=== PATIENT | male | born 1940 | race Caucasian/White ===

== ENCOUNTER 2019-02-16 21:38 | Emergency (ER) | payer MEDICARE, OTHER ==
[~2019-02-16] VITALS: Ht 175.3 cm; Wt 78.0 kg
[~2019-02-16 21:38] MED LIST: LEVAQUIN500 MG PO; PREDNISONE10 MG PO; RAMIPRIL10 MG PO
--- OUTSIDE RECORDS SUMMARY | 2019-02-16 21:41 | XMS REPORT ---
Author Author [facility] Address Unknown Phone Unavailable Care Team Providers Care Supervisor Painting Department Name Role Phone CARLOSShay RODRIGUEZ FINN Unavailable Unavailable Shay MAKI Unavailable Unavailable Payers Payer Name Policy Type Policy Number Effective Date Expiration Date Problems This patient has no known problems. Allergies, Adverse Reactions, Alerts Allergy Name Allergy Type Status Severity Reaction(s) Onset Date Inactive Date Treating Clinician Comments imtiaz FUENTES Active [place] 2016-08-20 00:00:00 Medications This patient has no known medications. Results Test Description Test Time Test Comments Text Results Atomic Results Result Comments BASIC METABOLIC PANEL 2019-02-05 06:17:00 SODIUM (BEAKER) (test pjec=670) 134 meq/L 136-145 POTASSIUM (BEAKER) (test egpd=698) 4.5 meq/L 3.5-5.1 CHLORIDE (BEAKER) (test fcip=793) 100 meq/L 98-107 CO2 (BEAKER) (test atgd=271) 27 meq/L 22-29 BLOOD UREA NITROGEN (BEAKER) (test emff=955) 15 mg/dL 7-21 CREATININE (BEAKER) (test nvbm=954) 0.91 mg/dL 0.57-1.25 GLUCOSE RANDOM (BEAKER) (test ixrf=466) 98 mg/dL 70-105 CALCIUM (BEAKER) (test agvb=275) 9.2 mg/dL 8.4-10.2 EGFR (BEAKER) (test vlau=5467) 81 mL/min/1.73 sq m ESTIMATED GFR IS NOT ACCURATE CREATININE CLEARANCE IN PREDICTING GLOMERULAR FILTRATION RATE. ESTIMATED GFR IS NOT APPLICABLE FOR DIALYSIS PATIENTS. CBC (HEMOGRAM ONLY)2019-02-05 05:25:00* Test Item Value Reference Range Comments WHITE BLOOD CELL COUNT (BEAKER) (test ucif=339) 8.0 K/ L 3.5-10.5 RED BLOOD CELL COUNT (BEAKER) (test mtqg=360) 4.25 M/ L 4.63-6.08 HEMOGLOBIN (BEAKER) (test jyni=065) 13.9 GM/DL 13.7-17.5 HEMATOCRIT (BEAKER) (test mkjy=398) 41.3 % 40.1-51.0 MEAN CORPUSCULAR VOLUME (BEAKER) (test rsls=940) 97.2 fL 79.0-92.2 MEAN CORPUSCULAR HEMOGLOBIN (BEAKER) (test vkik=634) 32.7 pg 25.7-32.2 MEAN CORPUSCULAR HEMOGLOBIN CONC (BEAKER) (test hqhz=600) 33.7 GM/DL 32.3-36.5 RED CELL DISTRIBUTION WIDTH (BEAKER) (test bayu=013) 12.5 % 11.6-14.4 PLATELET COUNT (BEAKER) (test dajl=575) 216 K/CU MM 150-450 MEAN PLATELET VOLUME (BEAKER) (test iopo=691) 10.0 fL 9.4-12.4 NUCLEATED RED BLOOD CELLS (BEAKER) (test ukjr=878) 0 /100 WBC 0-0 BASIC METABOLIC [id number] 13:53:00* Test Item Value Reference Range Comments SODIUM (BEAKER) (test lfyj=880) 129 meq/L 136-145 POTASSIUM (BEAKER) (test alri=618) 4.5 meq/L 3.5-5.1 CHLORIDE (BEAKER) (test bhca=449) 97 meq/L 98-107 CO2 (BEAKER) (test zqzo=684) 27 meq/L 22-29 BLOOD UREA NITROGEN (BEAKER) (test qirq=416) 17 mg/dL 7-21 CREATININE (BEAKER) (test iflm=627) 0.98 mg/dL 0.57-1.25 GLUCOSE RANDOM (BEAKER) (test whvy=365) 108 mg/dL 70-105 CALCIUM (BEAKER) (test vzwu=130) 9.1 mg/dL 8.4-10.2 EGFR (BEAKER) (test iqwc=1279) 74 mL/min/1.73 sq m ESTIMATED GFR IS NOT ACCURATE CREATININE CLEARANCE IN PREDICTING GLOMERULAR FILTRATION RATE. ESTIMATED GFR IS NOT APPLICABLE FOR DIALYSIS PATIENTS. PT/[id number] 13:46:00* Test Item Value Reference Range Comments PROTIME (BEAKER) (test okez=743) 13.3 seconds 11.9-14.2 INR (BEAKER) (test olbo=637) 1.1 <=5.9 PARTIAL THROMBOPLASTIN TIME (BEAKER) (test poxn=449) 30.7 seconds 22.5-36.0 Effective 08/31/2018: PT Reference Range ChangeNew: 11.9-14.2 Previous: 11.7-14. 7RECOMMENDED COUMADIN/WARFARIN INR THERAPY RANGESSTANDARD DOSE: 2.0-3.0 Include s: PROPHYLAXIS for venous thrombosis, systemic embolization; TREATMENT for venou s thrombosis and/or pulmonary embolus.HIGH RISK: Target INR is 2.5-3.5 for patie nts wiht mechanical heart valves.CBC W/PLT COUNT & AUTO [id number] 13:37:00* Test Item Value Reference Range Comments WHITE BLOOD CELL COUNT (BEAKER) (test bbiq=263) 7.6 K/ L 3.5-10.5 RED BLOOD CELL COUNT (BEAKER) (test ukyd=379) 3.97 M/ L 4.63-6.08 HEMOGLOBIN (BEAKER) (test ochi=141) 13.2 GM/DL 13.7-17.5 HEMATOCRIT (BEAKER) (test dwxa=387) 38.4 % 40.1-51.0 MEAN CORPUSCULAR VOLUME (BEAKER) (test ohcc=621) 96.7 fL 79.0-92.2 MEAN CORPUSCULAR HEMOGLOBIN (BEAKER) (test wbxw=031) 33.2 pg 25.7-32.2 MEAN CORPUSCULAR HEMOGLOBIN CONC (BEAKER) (test rfui=804) 34.4 GM/DL 32.3-36.5 RED CELL DISTRIBUTION WIDTH (BEAKER) (test rlrv=264) 12.5 % 11.6-14.4 PLATELET COUNT (BEAKER) (test nvtm=236) 192 K/CU MM 150-450 MEAN PLATELET VOLUME (BEAKER) (test czkg=436) 10.0 fL 9.4-12.4 NUCLEATED RED BLOOD CELLS (BEAKER) (test cfex=300) 0 /100 WBC 0-0 NEUTROPHILS RELATIVE PERCENT (BEAKER) (test bhkr=635) 64 % LYMPHOCYTES RELATIVE PERCENT (BEAKER) (test mzpp=631) 17 % MONOCYTES RELATIVE PERCENT (BEAKER) (test mjno=520) 11 % EOSINOPHILS RELATIVE PERCENT (BEAKER) (test mpyq=510) 8 % BASOPHILS RELATIVE PERCENT (BEAKER) (test aegc=747) 1 % NEUTROPHILS ABSOLUTE COUNT (BEAKER) (test jaeq=329) 4.88 K/ L 1.78-5.38 LYMPHOCYTES ABSOLUTE COUNT (BEAKER) (test hnaa=457) 1.26 K/ L 1.32-3.57 MONOCYTES ABSOLUTE COUNT (BEAKER) (test qcqc=853) 0.81 K/ L 0.30-0.82 EOSINOPHILS ABSOLUTE COUNT (BEAKER) (test dpws=849) 0.58 K/ L 0.04-0.54 BASOPHILS ABSOLUTE COUNT (BEAKER) (test imcm=437) 0.04 K/ L 0.01-0.08 IMMATURE GRANULOCYTES-RELATIVE PERCENT (BEAKER) (test pdqb=2779) 0 % 0-1 BASIC METABOLIC [id number] 05:00:00* Test Item Value Reference Range Comments SODIUM (BEAKER) (test cltq=081) 135 meq/L 136-145 POTASSIUM (BEAKER) (test msuf=189) 5.0 meq/L 3.5-5.1 CHLORIDE (BEAKER) (test xwrm=477) 104 meq/L 98-107 CO2 (BEAKER) (test fhke=033) 27 meq/L 22-29 BLOOD UREA NITROGEN (BEAKER) (test uvag=698) 11 mg/dL 7-21 CREATININE (BEAKER) (test kgqn=977) 0.82 mg/dL 0.57-1.25 GLUCOSE RANDOM (BEAKER) (test zoul=052) 98 mg/dL 70-105 CALCIUM (BEAKER) (test hzex=676) 8.6 mg/dL 8.4-10.2 EGFR (BEAKER) (test igvy=8047) 91 mL/min/1.73 sq m ESTIMATED GFR IS NOT ACCURATE CREATININE CLEARANCE IN PREDICTING GLOMERULAR FILTRATION RATE. ESTIMATED GFR IS NOT APPLICABLE FOR DIALYSIS PATIENTS. CBC W/PLT COUNT & AUTO [id number] 04:33:00* Test Item Value Reference Range Comments WHITE BLOOD CELL COUNT (BEAKER) (test umyt=309) 6.8 K/ L 3.5-10.5 RED BLOOD CELL COUNT (BEAKER) (test deru=884) 3.76 M/ L 4.63-6.08 HEMOGLOBIN (BEAKER) (test mkde=894) 12.3 GM/DL 13.7-17.5 HEMATOCRIT (BEAKER) (test ssfd=599) 36.7 % 40.1-51.0 MEAN CORPUSCULAR VOLUME (BEAKER) (test szwi=620) 97.6 fL 79.0-92.2 MEAN CORPUSCULAR HEMOGLOBIN (BEAKER) (test cdew=733) 32.7 pg 25.7-32.2 MEAN CORPUSCULAR HEMOGLOBIN CONC (BEAKER) (test gqeq=466) 33.5 GM/DL 32.3-36.5 RED CELL DISTRIBUTION WIDTH (BEAKER) (test dszi=006) 12.6 % 11.6-14.4 PLATELET COUNT (BEAKER) (test acln=907) 171 K/CU MM 150-450 MEAN PLATELET VOLUME (BEAKER) (test wean=611) 10.1 fL 9.4-12.4 NUCLEATED RED BLOOD CELLS (BEAKER) (test lceq=187) 0 /100 WBC 0-0 NEUTROPHILS RELATIVE PERCENT (BEAKER) (test xzep=433) 72 % LYMPHOCYTES RELATIVE PERCENT (BEAKER) (test gjdk=006) 17 % MONOCYTES RELATIVE PERCENT (BEAKER) (test rkxv=846) 9 % EOSINOPHILS RELATIVE PERCENT (BEAKER) (test wdzx=380) 2 % BASOPHILS RELATIVE PERCENT (BEAKER) (test xwqz=089) 1 % NEUTROPHILS ABSOLUTE COUNT (BEAKER) (test tret=220) 4.85 K/ L 1.78-5.38 LYMPHOCYTES ABSOLUTE COUNT (BEAKER) (test ajnj=104) 1.12 K/ L 1.32-3.57 MONOCYTES ABSOLUTE COUNT (BEAKER) (test aoal=257) 0.62 K/ L 0.30-0.82 EOSINOPHILS ABSOLUTE COUNT (BEAKER) (test trgc=218) 0.15 K/ L 0.04-0.54 BASOPHILS ABSOLUTE COUNT (BEAKER) (test htfm=898) 0.04 K/ L 0.01-0.08 IMMATURE GRANULOCYTES-RELATIVE PERCENT (BEAKER) (test qfta=1258) 0 % 0-1 [id number] 10:18:00* Test Item Value Reference Range Comments ACTIVATED CLOTTING TIME (BEAKER) (test rlls=148) 340 sec Reference Range: 74-137 seconds, Baseline/TESTED AT [place] [id number] 09:40:00* Test Item Value Reference Range Comments ACTIVATED CLOTTING TIME (BEAKER) (test ikbv=115) 263 sec Reference Range: 74-137 seconds, Baseline/TESTED AT [place] [id number] [id number] 09:08:00* Test Item Value Reference Range Comments ACTIVATED CLOTTING TIME (BEAKER) (test duxx=410) 323 sec Reference Range: 74-137 seconds, Baseline/TESTED AT [place] [id number] 09:08:00* Test Item Value Reference Range Comments ACTIVATED CLOTTING TIME (BEAKER) (test qkpn=874) 252 sec Reference Range: 74-137 seconds, Baseline/TESTED AT [place] [id number] BASIC METABOLIC [id number] 07:39:00* Test Item Value Reference Range Comments SODIUM (BEAKER) (test vfck=659) 128 meq/L 136-145 POTASSIUM (BEAKER) (test loyp=840) 4.2 meq/L 3.5-5.1 CHLORIDE (BEAKER) (test vamy=860) 98 meq/L 98-107 CO2 (BEAKER) (test bwcs=640) 27 meq/L 22-29 BLOOD UREA NITROGEN (BEAKER) (test vsnu=719) 14 mg/dL 7-21 CREATININE (BEAKER) (test dvvp=539) 0.84 mg/dL 0.57-1.25 GLUCOSE RANDOM (BEAKER) (test navi=257) 93 mg/dL 70-105 CALCIUM (BEAKER) (test xcvk=858) 8.6 mg/dL 8.4-10.2 EGFR (BEAKER) (test wqky=7719) 89 mL/min/1.73 sq m ESTIMATED GFR IS NOT ACCURATE CREATININE CLEARANCE IN PREDICTING GLOMERULAR FILTRATION RATE. ESTIMATED GFR IS NOT APPLICABLE FOR DIALYSIS PATIENTS. CBC (HEMOGRAM ONLY)2019-01-31 06:59:00* Test Item Value Reference Range Comments WHITE BLOOD CELL COUNT (BEAKER) (test zlru=922) 4.8 K/ L 3.5-10.5 RED BLOOD CELL COUNT (BEAKER) (test xxdq=204) 3.87 M/ L 4.63-6.08 HEMOGLOBIN (BEAKER) (test zlrr=014) 12.7 GM/DL 13.7-17.5 HEMATOCRIT (BEAKER) (test brbg=242) 36.9 % 40.1-51.0 MEAN CORPUSCULAR VOLUME (BEAKER) (test wylq=180) 95.3 fL 79.0-92.2 MEAN CORPUSCULAR HEMOGLOBIN (BEAKER) (test oixu=294) 32.8 pg 25.7-32.2 MEAN CORPUSCULAR HEMOGLOBIN CONC (BEAKER) (test updy=746) 34.4 GM/DL 32.3-36.5 RED CELL DISTRIBUTION WIDTH (BEAKER) (test oidh=798) 12.4 % 11.6-14.4 PLATELET COUNT (BEAKER) (test nikc=393) 182 K/CU MM 150-450 MEAN PLATELET VOLUME (BEAKER) (test dnkp=409) 10.3 fL 9.4-12.4 NUCLEATED RED BLOOD CELLS (BEAKER) (test xwvt=911) 0 /100 WBC 0-0 BASIC METABOLIC [id number] 06:41:00* Test Item Value Reference Range Comments SODIUM (BEAKER) (test qkou=229) 135 meq/L 136-145 POTASSIUM (BEAKER) (test npue=335) 4.6 meq/L 3.5-5.1 CHLORIDE (BEAKER) (test bnkk=750) 101 meq/L 98-107 CO2 (BEAKER) (test ekpz=487) 29 meq/L 22-29 BLOOD UREA NITROGEN (BEAKER) (test ynol=219) 17 mg/dL 7-21 CREATININE (BEAKER) (test ztla=689) 1.07 mg/dL 0.57-1.25 GLUCOSE RANDOM (BEAKER) (test zyaf=865) 101 mg/dL 70-105 CALCIUM (BEAKER) (test dnwj=467) 9.7 mg/dL 8.4-10.2 EGFR (BEAKER) (test ukux=1944) 67 mL/min/1.73 sq m ESTIMATED GFR IS NOT ACCURATE CREATININE CLEARANCE IN PREDICTING GLOMERULAR FILTRATION RATE. ESTIMATED GFR IS NOT APPLICABLE FOR DIALYSIS PATIENTS. PROTHROMBIN TIME/[id number] 06:28:00* Test Item Value Reference Range Comments PROTIME (BEAKER) (test abpe=302) 13.2 seconds 11.9-14.2 INR (BEAKER) (test cglh=077) 1.1 <=5.9 Effective 08/31/2018: PT Reference Range ChangeNew: 11.9-14.2 Previous: 11.7-14. 7RECOMMENDED COUMADIN/WARFARIN INR THERAPY RANGESSTANDARD DOSE: 2.0-3.0 Include s: PROPHYLAXIS for venous thrombosis, systemic embolization; TREATMENT for venou s thrombosis and/or pulmonary embolus.HIGH RISK: Target INR is 2.5-3.5 for patie nts wiht mechanical heart valves.Within 24 hours, if on CoumadinCBC (HEMOGRAM ONLY)2019-01-10 06:15:00* Test Item Value Reference Range Comments WHITE BLOOD CELL COUNT (BEAKER) (test nmrt=207) 5.0 K/ L 3.5-10.5 RED BLOOD CELL COUNT (BEAKER) (test qdtu=051) 4.48 M/ L 4.63-6.08 HEMOGLOBIN (BEAKER) (test efjq=436) 14.7 GM/DL 13.7-17.5 HEMATOCRIT (BEAKER) (test rori=746) 44.5 % 40.1-51.0 MEAN CORPUSCULAR VOLUME (BEAKER) (test razr=216) 99.3 fL 79.0-92.2 MEAN CORPUSCULAR HEMOGLOBIN (BEAKER) (test rtka=751) 32.8 pg 25.7-32.2 MEAN CORPUSCULAR HEMOGLOBIN CONC (BEAKER) (test gsob=888) 33.0 GM/DL 32.3-36.5 RED CELL DISTRIBUTION WIDTH (BEAKER) (test dbrt=534) 12.5 % 11.6-14.4 PLATELET COUNT (BEAKER) (test bbgv=115) 186 K/CU MM 150-450 MEAN PLATELET VOLUME (BEAKER) (test mepz=850) 10.5 fL 9.4-12.4 NUCLEATED RED BLOOD CELLS (BEAKER) (test zsxm=716) 0 /100 WBC 0-0 BASIC METABOLIC [id number] 08:19:00* Test Item Value Reference Range Comments SODIUM (test code=NA) 139 mEq/L 134-147 POTASSIUM (test code=K) 4.1 mEq/L 3.4-5.0 CHLORIDE (test code=CL) 107 mEq/L 100-108 CARBON DIOXIDE (test code=CO2) 28 mEq/L 21-33 ANION GAP (test code=GAP) 8 0-20 GLUCOSE (test code=GLU) 95 mg/dL 70-110 BLOOD UREA NITROGEN (test code=BUN) 16 mg/dL 7-18 GLOMERULAR FILTRATION RATE (test code=GFR) 82.0 70-80 Units of measure=ml/min/1.73 m2 CREATININE (test code=CREAT) 0.9 mg/dL 0.6-1.3 CALCIUM (test code=CA) 9.1 mg/dL 8.0-10.5 CBC W/AUTO [id number] 08:18:00* Test Item Value Reference Range Comments WHITE BLOOD CELL (test code=WBC) 5.76 x10 3/uL 4.5-11.0 RED BLOOD CELL (test code=RBC) 4.23 x10 6/uL 4.00-5.60 HEMOGLOBIN (test code=HGB) 14.0 g/dL 12.5-16.9 HEMATOCRIT (test code=HCT) 41.7 % 37.5-50.7 MEAN CELL VOLUME (test code=MCV) 98.6 fL 81.0-99.0 MEAN CELL HGB (test code=MCH) 33.1 pg 27.0-33.0 MEAN CELL HGB CONCETRATION (test code=MCHC) 33.6 g/dL 33.0-37.0 RED CELL DISTRIBUTION WIDTH CV (test code=RDW) 12.9 % 11.5-14.5 RED CELL DISTRIBUTION WIDTH SD (test code=RDW-SD) 47.1 fL 37.0-54.0 PLATELET COUNT (test code=PLT) 183 x10 3/uL 150-400 MEAN PLATELET VOLUME (test code=MPV) 11.2 fL 7.0-9.0 NEUTROPHIL % (test code=NT%) 52.8 % 56.0-77.0 IMMATURE GRANULOCYTE % (test code=IG%) 0.3 % 0.0-2.0 LYMPHOCYTE % (test code=LY%) 31.8 % 14.0-32.0 MONOCYTE % (test code=MO%) 11.8 % 4.8-9.0 EOSINOPHIL % (test code=EO%) 2.6 % 0.3-3.7 BASOPHIL % (test code=BA%) 0.7 % 0.0-2.0 NUCLEATED RBC % (test code=NRBC%) 0.0 % 0-0 NEUTROPHIL # (test code=NT#) 3.04 x10 3/uL 2.0-7.6 IMMATURE GRANULOCYTE # (test code=IG#) 0.02 x10 3/uL 0.00-0.03 LYMPHOCYTE # (test code=LY#) 1.83 x10 3/uL 1.0-3.8 MONOCYTE # (test code=MO#) 0.68 x10 3/uL 0.1-0.8 EOSINOPHIL # (test code=EO#) 0.15 x10 3/uL 0.0-0.2 BASOPHIL # (test code=BA#) 0.04 x10 3/uL 0.0-0.2 NUCLEATED RBC # (test code=NRBC#) 0.00 x10 3/uL 0.0-0.1 MANUAL DIFF REQUIRED (test code=MDIFF) NO HGB [id number] 20:11:00* Test Item Value Reference Range Comments HEMOGLOBIN (test code=HGB) 13.6 g/dL 12.5-16.9 HEMATOCRIT (test code=HCT) 39.5 % 37.5-50.7 T4 [id number] 12:53:00* Test Item Value Reference Range Comments T4 FREE (test code=T4F) 1.1 ng/dL 0.77-1.61 THYROID STIMULATING [id number] 12:53:00* Test Item Value Reference Range Comments THYROID STIMULATING HORMONE (test code=TSH) 1.44 0.42-5.47 Results in [employer] Units/mL [id number] 12:39:00* Test Item Value Reference Range Comments D-DIMER (test code=DDIMER) 302 ng/mlFEU <=500 THROMBOSIS AND/OR PULMONARY EMBOLISM AND THE CLINICAL CUT- OFF VALUE FOR EXCLUSION (500 ng/mL FEU) OF THESE CONDITIONSIS VALIDATED BY THE HANDS AND DIAL INSPECTOR OF THE METHOD. A NEGATIVE D-DIMER RESULT WHEN COMBINED WITH A CLINICALASSESSMENT OF LOW PRETEST PROBABILITY HAS BEEN SHOWN TO HAVEA HIGH NEGATIVE PREDICTIVE VALUE OF DVT OR PE. D-DIMER VALUES >500 ng/mL FEU ARE NOT DIAGNOSTIC FOR DVT, PEor DIC WITHOUT OTHER CONFIRMATORY TESTS AND APPROPRIATECLINICAL EUALUATIONS. HGB [id number] 08:06:00* Test Item Value Reference Range Comments HEMOGLOBIN (test code=HGB) 13.2 g/dL 12.5-16.9 HEMATOCRIT (test code=HCT) 39.4 % 37.5-50.7 [id number] 07:58:00* Test Item Value Reference Range Comments TROPONIN-I (test code=TROPI) < 0.015 ng/mL 0.000-0.045 Negative: <=0.045 Positive: >=0.046 Correlation with serial results, other cardiac markers andclinical findings is necessary to determine the clinicalsignificance of this result. Results using different methodologies should not be comparedto one another as quantitative results may vary by method. COMMENTS: 3 troponins total (including troponin done in ED)[id number] 04:01:00* Test Item Value Reference Range Comments TROPONIN-I (test code=TROPI) < 0.015 ng/mL 0.000-0.045 Negative: <=0.045 Positive: >=0.046 Correlation with serial results, other cardiac markers andclinical findings is necessary to determine the clinicalsignificance of this result. Results using different methodologies should not be comparedto one another as quantitative results may vary by method. COMMENTS: 3 troponins total (including troponin done in ED)LACTIC ACID REPEAT 2018-12-21 04:00:00* Test Item Value Reference Range Comments LACTIC ACID REPEAT (test code=LACTR) 0.8 mmol/l 0.4-1.9 B-TYPE NATRIURETIC [id number] 01:12:00* Test Item Value Reference Range Comments B-TYPE NATRIURETIC PEPTIDE (test code=BNP) 243.5 PG/ML 0-100 - XR CHEST 1 [id number] 00:40:00 FAX: Sumeet Leonardo [phone] Mobile: St: PRE FAX: Ramirez Francisco MD [phone] Name: TALON PADILLA : 1940 Age/S: 78/M [address] [place] [address] Blvd Unit #: [id number] Loc: G.ERS2 [place] [address] Phys: Ramirez Beasley MD Acct: [id number] Dis Date: Status: PRE ER PHONE #: [phone] Exam Date: 12/21/2018 003 FAX #: [phone] Reason: Chest Pain EXAMS: CPT CODE: [id number] XR CHEST 1 V 06014 Chest, single view dated 12/21/2018. HISTORY: Chest pain. No prior studies are available comparison. The patient is status post median sternotomy. The heart appears upper normal in size. Atherosclerotic calcification is identified in the aorta. The lungs appear clear of acute disease. Left diaphragmatic elevation and is associated with scarring or atelectasis in the left base. The pulmonary vasculature is normal in caliber. No acute pleural space abnormalities ar e identified. Pleural thickening is noted in the left hemithorax. IMPRESSION: 1. No radiographic evidence of acute cardiopulmona ry disease. SL: 131 at 0040 Reported and signed by: Arben castro M.D. CC: Sumeet Stiles; Ramirez Beasley MD Technologist: Isak Leon, RT(R); RT Robby(R) [facility] Date/Time/By: 12/21/2018 (0040) : By: Jeff Orig Print D/T: S : 12/21/2018 (0043) PAGE 1 Signed Report HEPATIC FUNCTION [id number] 00:38:00* Test Item Value Reference Range Comments TOTAL PROTEIN (test code=PROT) 6.9 g/dL 6.4-8.2 ALBUMIN (test code=ALB) 3.40 g/dL 3.4-5.0 BILIRUBIN TOTAL (test code=BILT) 0.6 MG/DL <1.5 BILIRUBIN DIRECT (test code=BILD) 0.20 MG/DL 0.0-0.30 BILIRUBIN INDIRECT (test code=BILIND) 0.40 MG/DL SGOT/AST (test code=AST) 16 IUnit/L 15-37 SGPT/ALT (test code=ALT) 18 IUnit/L 15-65 ALKALINE PHOSPHATASE TOTAL (test code=ALKP) 62 IUnit/L 20-125 [id number] 00:38:00* Test Item Value Reference Range Comments LIPASE (test code=LIP) 129 IUnit/L 73-393 [id number] 00:38:00* Test Item Value Reference Range Comments MAGNESIUM (test code=MAG) 2.00 mg/dL 1.8-2.4 THYROID STIMULATING [id number] 00:38:00* Test Item Value Reference Range Comments THYROID STIMULATING HORMONE (test code=TSH) 2.16 0.42-5.47 Results in [employer] Units/mL PROTHROMBIN [id number] 00:25:00* Test Item Value Reference Range Comments PROTHROMBIN TIME PATIENT (test code=PTP) 19.3 SECONDS 9.3-12.9 INTERNATIONAL NORMAL RATIO (test code=INR) 1.8 0.8-1.2 TARGET INR BY INDICATION Indication INR1. Prophylaxis of venous thrombosis 2.0 - 3.0 (orthopedic surgery), Prophylaxis of venous thrombosis (other than high-risk surgery), Treatment of Deep Vein Thrombosis/Pulmonary Embolism, Prevention of systemic embolism - Tissue heart valves, Acute Myocardial Infarction (to prevent systemic embolism), Valvular heart disease, Atrial Fibrillation, Bileaflet mechanical valve in aortic position.2. Mechanical prosthetic valves (high risk), 2.5 - 3.5 Presence of Lupus Anticoagulant or Antiphospholipid Antibodies, Prevention of systemic embolism - Acute Myocardial Infarction (to prevent recurrent infarct). THROMBOPLASTIN TIME [id number] 00:25:00* Test Item Value Reference Range Comments THROMBOPLASTIN TIME PARTIAL (test code=PTT) 40.0 Seconds 25.0-39.5 Therapeutic Range: 50.4 - 88.3 Seconds Effective 07/19/2018 [id number] 00:25:00* Test Item Value Reference Range Comments D-DIMER (test code=DDIMER) 301 ng/mlFEU <=500 THROMBOSIS AND/OR PULMONARY EMBOLISM AND THE CLINICAL CUT- OFF VALUE FOR EXCLUSION (500 ng/mL FEU) OF THESE CONDITIONSIS VALIDATED BY THE HANDS AND DIAL INSPECTOR OF THE METHOD. A NEGATIVE D-DIMER RESULT WHEN COMBINED WITH A CLINICALASSESSMENT OF LOW PRETEST PROBABILITY HAS BEEN SHOWN TO HAVEA HIGH NEGATIVE PREDICTIVE VALUE OF DVT OR PE. D-DIMER VALUES >500 ng/mL FEU ARE NOT DIAGNOSTIC FOR DVT, PEor DIC WITHOUT OTHER CONFIRMATORY TESTS AND APPROPRIATECLINICAL EUALUATIONS. CBC W/AUTO [id number] 00:17:00* Test Item Value Reference Range Comments WHITE BLOOD CELL (test code=WBC) 5.94 x10 3/uL 4.5-11.0 RED BLOOD CELL (test code=RBC) 4.34 x10 6/uL 4.00-5.60 HEMOGLOBIN (test code=HGB) 14.5 g/dL 12.5-16.9 HEMATOCRIT (test code=HCT) 43.6 % 37.5-50.7 MEAN CELL VOLUME (test code=MCV) 100.5 fL 81.0-99.0 MEAN CELL HGB (test code=MCH) 33.4 pg 27.0-33.0 MEAN CELL HGB CONCETRATION (test code=MCHC) 33.3 g/dL 33.0-37.0 RED CELL DISTRIBUTION WIDTH CV (test code=RDW) 12.8 % 11.5-14.5 RED CELL DISTRIBUTION WIDTH SD (test code=RDW-SD) 47.8 fL 37.0-54.0 PLATELET COUNT (test code=PLT) 181 x10 3/uL 150-400 MEAN PLATELET VOLUME (test code=MPV) 10.6 fL 7.0-9.0 NEUTROPHIL % (test code=NT%) 46.3 % 56.0-77.0 IMMATURE GRANULOCYTE % (test code=IG%) 0.3 % 0.0-2.0 LYMPHOCYTE % (test code=LY%) 37.0 % 14.0-32.0 MONOCYTE % (test code=MO%) 13.0 % 4.8-9.0 EOSINOPHIL % (test code=EO%) 2.7 % 0.3-3.7 BASOPHIL % (test code=BA%) 0.7 % 0.0-2.0 NUCLEATED RBC % (test code=NRBC%) 0.0 % 0-0 NEUTROPHIL # (test code=NT#) 2.75 x10 3/uL 2.0-7.6 IMMATURE GRANULOCYTE # (test code=IG#) 0.02 x10 3/uL 0.00-0.03 LYMPHOCYTE # (test code=LY#) 2.20 x10 3/uL 1.0-3.8 MONOCYTE # (test code=MO#) 0.77 x10 3/uL 0.1-0.8 EOSINOPHIL # (test code=EO#) 0.16 x10 3/uL 0.0-0.2 BASOPHIL # (test code=BA#) 0.04 x10 3/uL 0.0-0.2 NUCLEATED RBC # (test code=NRBC#) 0.00 x10 3/uL 0.0-0.1 MANUAL DIFF REQUIRED (test code=MDIFF) NO TROPONIN-I [id number] 00:11:00* Test Item Value Reference Range Comments TROPONIN-I RAPID (test code=TROPIRAP) 0.01 ng/mL 0.00-0.08 Performed by certified deck engine operator at [facility] Negative: <=0.08 Positive: >=0.09An elevated troponin value alone is not sufficient todiagnose a myocardial infarction. Rather, the patient sclinical presentation (history, physical exam) and ECGshould be used in conjunction with troponin in thediagnostic evaluation of suspected myocardial infarction. Aserial sampling protocol is recommended to facilitate the identification of temporal changes in troponin levels characteristic of NV. LACTIC ACID [id number] 00:04:00* Test Item Value Reference Range Comments LACTIC ACID POC (test code=LACTP) 2.1 MMOL/L 0.90-1.70 Performed by certified deck engine operator at [facility] CHEMISTRY 8 [id number] 00:04:00* Test Item Value Reference Range Comments ISTAT-SODIUM (test code=NAP) MMOL/L 134-147 ISTAT-POTASSIUM (test code=KP) MMOL/L 3.4-5.0 ISTAT-CHLORIDE (test code=CLP) MMOL/L 100-108 ISTAT CARBON DIOXIDE (test code=ISTAT-CO2) mmol/L 21-33 ISTAT CALCIUM IONIZED (test code=ISTAT-PAYTON) MG/DL 1.12-1.32 ISTAT-GLUCOSE (test code=GLUP) MG/DL 70-110 ISTAT-BUN (test code=BUNP) MG/DL 7-18 BEDSIDE CREATININE (test code=CREATBED) MG/DL 0.6-1.3 GLOMERULAR FILTRATION RATE POC (test code=GFRBED) 63 ML/MIN CHEMISTRY 8 [id number] 00:04:00* Test Item Value Reference Range Comments ISTAT-SODIUM (test code=NAP) 136 MMOL/L 134-147 ISTAT-POTASSIUM (test code=KP) 5.1 MMOL/L 3.4-5.0 ISTAT-CHLORIDE (test code=CLP) 101 MMOL/L 100-108 Performed by certified deck engine operator at [facility] ISTAT CARBON DIOXIDE (test code=ISTAT-CO2) 28.0 mmol/L 21-33 ISTAT CALCIUM IONIZED (test code=ISTAT-PAYTON) 1.21 MG/DL 1.12-1.32 ISTAT-GLUCOSE (test code=GLUP) 99 MG/DL 70-110 ISTAT-BUN (test code=BUNP) 25 MG/DL 7-18 BEDSIDE CREATININE (test code=CREATBED) 1.2 MG/DL 0.6-1.3 GLOMERULAR FILTRATION RATE POC (test code=GFRBED) 63 ML/MIN
[2019-02-16] MEDS ORDERED: ENOXAPARIN INJ 80 MG/0.8 ML SYR SC STA (22:00)
[2019-02-16] MEDS ORDERED: AMIODARONE HCL 150MG 100 ML IV SCH (22:00)
[2019-02-16] MEDS ORDERED: AMIODARONE HCL 150MG 100 ML ONE (22:08)
[2019-02-16] MEDS ORDERED: AMIODARONE 900MG 500 ML IV ONE (22:27)
[2019-02-16] MEDS ORDERED: AMIODARONE HCL 150MG 100 ML IV ONE (22:30)
[2019-02-16] MEDS ORDERED: AMIODARONE HCL 360MG 200 ML IV SCH (22:30)
[2019-02-16 22:48] LABS: INR 0.85; PROTHROMBIN TIME 12.1 seconds (11.9-14.5)
[2019-02-16 22:49] LABS: PARTIAL THROMBOPLASTIN TIME 28.8 seconds (23.8-35.5)
--- NOTE | 2019-02-16 22:55 | Diagnostic Imaging Report ---
EXAMINATION: CHEST SINGLE (PORTABLE) COMPARISON: Report of chest x-ray performed 06/23/2014 INDICATION: Heart palpitations ^PALPITATIONS, NEW ONSET AFIB ^Y DISCUSSION: Frontal view of the chest obtained at 2226 hours. 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 The heart is top normal in size to mildly enlarged LINES: None. LUNGS: The right lung is clear. 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 No vascular congestion. PLEURA: No large effusions. No pneumothorax. BONES AND SOFT TISSUES: Median sternotomy wires are intact. A calcification in the right axilla measures 7 mm. 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 Cardiac bypass changes and mild cardiomegaly. No vascular congestion. Signed by: Dr. Yuri Cordova MD on 02/16/2019 10:52 PM
[2019-02-16 22:57] LABS: ALANINE AMINOTRANSFERASE 13 IU/L (0-55); ALBUMIN 3.8 g/dL (3.5-5.0); ALBUMIN/GLOBULIN RATIO 1.1 (0.8-2.0); ALKALINE PHOSPHATASE 88 IU/L (40-150); BLOOD UREA NITROGEN 14 mg/dL (7-26); BUN/CREATININE RATIO 14 (6-25); CALCIUM 9.7 mg/dL (8.4-10.2); CARBON DIOXIDE 25 mmol/L (22-29); CHLORIDE 98 mmol/L (98-107); CREATINE KINASE 45 IU/L (30-200); CREATININE, SERUM 1.01 mg/dL (0.72-1.25); EST GLOMERULAR FILTRATION RATE > 60 ML/MIN (60-); GLUCOSE 144 mg/dL (74-118); SODIUM 133 mmol/L (136-145)
[2019-02-16 23:00] LABS: BASOPHILS # (AUTO) 0.1 (0.0-0.1); BASOPHILS % 0.7 % (0.0-1.0); CREATINE KINASE MB < 1.00 ng/mL (0-4.3); EOSINOPHILS # (AUTO) 0.3 (0.0-0.4); EOSINOPHILS % 3.3 % (0.0-6.0); HEMATOCRIT 42.9 % (38.2-49.6); HEMOGLOBIN 14.4 g/dL (14.0-18.0); LYMPHOCYTES # (AUTO) 2.2 (1.0-3.2); LYMPHOCYTES % 21.9 % (18.0-39.1); MEAN CORPUSCULAR HEMOGLOBIN 32.3 pg (28-32); MEAN CORPUSCULAR HGB CONC 33.6 g/dL (31-35); MEAN CORPUSCULAR VOLUME 96.2 fL (81-99); MONOCYTES % 10.3 % (4.4-11.3); NEUTROPHILS # (AUTO) 6.4 (2.1-6.9); NEUTROPHILS % 63.6 % (38.7-80.0); PLATELET COUNT 316 x10e3/uL (140-360); RED BLOOD COUNT 4.46 x10e6/uL (4.3-5.7); RED CELL DISTRIBUTION WIDTH 12.8 % (11.7-14.4)
[2019-02-17 01:17] VITALS: BP 134/77
[2019-02-17] MEDS ORDERED: AMIODARONE HCL 360MG 200 ML IV SCH (04:30)
== END 2019-02-17 01:38 | disposition short-term general hospital (02) ==
LOC: ER 21:38
DX: R00.2 Palpitations (principal); I48.91 Unspecified atrial fibrillation; I10 Essential (primary) hypertension; E78.5 Hyperlipidemia, unspecified; I25.2 Old myocardial infarction; Z95.1 Presence of aortocoronary bypass graft
CPT/HCPCS: 36415; 71045; 80053; 82550; 82553; 83880; 84484; 85025; 85610; 85730; 93005; 99284; J1650